=== PATIENT | female | born 1965 | race Caucasian/White ===

== ENCOUNTER → 2019-08-01 | Outpatient (CLI) | payer OTHER ==
[~2019-08-01] MED LIST: REGADENOSON 0.4 MG/5 ML SYRINGE IV ONE
--- NOTE | 2019-08-01 11:38 | NM ---
EXAMINATION TYPE: NM stress lexiscan cardiolite DATE OF EXAM: 08/01/2019 COMPARISON: NONE HISTORY: Abnormal EKG TECHNIQUE: After the intravenous administration of 10.3 mCi Tc 99m Sestamibi - Cardiolite resting SP ECT images acquired 55 minutes post injection. The patient received 0.4mg Lexiscan, 26 mCi Tc 99m Sestamibi - Stress images obtained 40 minutes post injection FINDINGS: Review of stress and rest SPECT images demonstrates mild decreased uptake along the anterior septal l eft ventricle more on rest images than on rest images. Gated analysis shows normal wall motion with an estimated left ventricular ejection fraction of 64 %. IMPRESSION: No scintigraphic evidence for reversible ischemia. Findings above could possibly be due to breast att enuation, correlate.
--- NOTE | 2019-08-01 12:32 | EST ---
EXERCISE STRESS AGE: 54 SEX: F HT: 60" WT: 172 lbs. PROTOCOL: Lexiscan Cardiolite STAGE: DURATION OF EXERCISE: HEART RATE REST: 65 BLOOD PRESSURE REST: 125/78 MAXIMUM HEART RATE ACHIEVED: 88 MAXIMUM BLOOD PRESSURE: 144/60 85% MPHR: 141 100% MPHR: 166 METS: INDICATIONS: Abnormal EKG. CLINICAL INFORMATION: Baseline EKG shows sinus rhythm, normal axis, normal intervals. Patient was given intravenous Lexiscan as per protocol. Did not have chest pain or diagnostic ST-segment depression. CONCLUSION: 1. Negative stress test by EKG criteria. 2. Cardiolite portion of the stress test will be reported separately. MMODL / IJN: [id number] /
== END | disposition home or self-care (01) ==
LOC: RADNMMAIN 08:00
PROVIDERS: ATTEND Family Medicine
DX: R94.31 Abnormal electrocardiogram [ECG] [EKG] (principal)
CPT/HCPCS: 93017; 78452; A9500; J2785

== ENCOUNTER → 2019-10-16 | Outpatient (CLI) | payer OTHER ==
[2019-10-16 13:47] VITALS: BP 126/88; PULSE 69; RESP 16; TEMP 98.3
--- NOTE | 2019-10-16 14:46 | P.HPOB ---
History of Present Illness H&P Date: 10/16/19 Chief Complaint: The patient is here for her routine gynecologic exam. This is a 54-year-old 012 with an LMP of 2009. The patient is here to establish with this office. It has been about 3 or 4 years since her last pelvic exam. She states she has noticed a pimple near the mons pubis which she has squeezed in the past but it does recur. She is otherwise without complaints. She denies any postmenopausal bleeding. Review of Systems The patient has lost 8 pounds over the last year. She has tried to be more active with exercise. She denies respiratory, cardiac, or G.I. problems. 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 History of Any Multi-Drug Resistant Organisms: None Reported Past Surgical History: Tonsillectomy Additional Past Surgical History / Comment(s): Benign thyroid cyst removed. Past Psychological History: No Psychological Hx Reported Smoking Status: Current every day smoker (12 cigarettes per day) Past Alcohol Use History: Daily (1 per Day) Past Drug Use History: None Reported Additional History: She has been since 1980 and is retired. She previously worked in the [employer] and [employer] industry. - Past Family History Father Family Medical History: Diabetes Mellitus, Hyperlipidemia, Myocardial Infarction ([place]) Mother Family Medical History: CVA/TIA Additional Family Medical History / Comment(s): She has no family history of cancer of the breast, uterus, ovaries, or colon. Medications and Allergies Home Medications Medication Instructions Recorded Confirmed Type Indapamide 2.5 PO DAILY 10/16/19 History Metoprolol Succinate (ER) [Toprol 100 mg PO DAILY 10/16/19 10/16/19 History Xl] amLODIPine BESYLATE 5 PO DAILY 10/16/19 History Allergies Allergy/AdvReac Type Severity Reaction Status Date / Time REMA Inhibitors Allergy Swelling Unverified 08/01/19 08:20 Exam Vital Signs Temp Pulse Resp BP 10/16/19 13:19 98.3 F 69 16 126/88 Intake and Output 10/15/19 10/16/19 10/16/19 22:59 06:59 14:59 Other: Weight 78.018 kg Height 5 feet 2 inches, weight 172 pounds, BMI 31.5. This is a well-developed well-nourished white female who is alert and oriented times 3 in no acute distress. HEENT: Within normal limits. NECK: Supple without mass or thyromegaly. CHEST AND LUNGS: Clear to auscultation. HEART: Regular rate and rhythm. BREASTS: Are without mass or discharge. AXILLARY EXAM: Negative for adenopathy. BACK: Negative for CVA tenderness. ABDOMEN: Soft, nontender, without palpable masses. The patient describes an area on the low abdomen superior to the mons pubis and just to the right of midline where she occasionally has seen a pimple-like lesion which she has squeezed in the past. Currently there is no lesion other than a slightly scarred area in and abdominal stretch pepper. This appears very benign. PELVIC EXAM: Normal external genitalia with mild atrophy. Cervix and vagina appear normal mild atrophy. There is no unusual discharge. There is no evidence of prolapse. The uterus is midposition, nongravid size and nontender. There are no palpable adnexal masses or tenderness. RECTAL EXAM: rectovaginal exam is negative for mass or tenderness and is negative for occult blood. EXTREMITIES: Nontender. IMPRESSION: 1. 54-year-old menopausal female with normal gynecologic exam. 2. Smoker. PLAN: 1. Pap smear was performed. 2. Self breast awareness was discussed with the patient. 3. Screening mammogram is recommended and the patient has an appointment for this. The order slip was given to the patient by Dr. Fam Olivo. 4. Osteoporosis prevention was discussed. I have stressed the importance of adequate calcium, vitamin D and regular exercise. Recommended amounts of calcium and vitamin D were also discussed. 5. We have discussed colorectal screening. She has never had a colonoscopy done in the past. She had a cologuard test done within the last [address] Fam Olivo. I have recommended that she have this done at least every 3 years if she chooses not to have regular colonoscopies. 6. She was advised to return in one year for her annual well woman exam.
--- NOTE | 2019-10-30 10:13 | P.PN ---
Progress Note - Text Progress Note Date: 10/30/19 OUTPATIENT FOLLOW-UP NOTE TEST(S)/RESULTS: Pap smear from 10/16/2019 was negative. METHOD OF NOTIFICATION: The patient was notified by phone. PATIENT COMMENTS: She is happy to hear this result. DIAGNOSIS: Negative Pap smear. DISCUSSION: She has her mammogram scheduled in December. PLAN: She was advised to return in one year for her annual well woman exam.
== END | disposition home or self-care (01) ==
LOC: WWCWWP 13:09
PROVIDERS: ATTEND Obstetrics & Gynecology
DX: Z53.9 Procedure and treatment not carried out, unspecified reason (principal)

== ENCOUNTER → 2019-12-27 | Outpatient (CLI) | payer OTHER ==
--- NOTE | 2020-01-07 08:51 | MM ---
Reason for exam: screening (asymptomatic). Last mammogram was performed 3 years and 1 month ago. History: Patient is postmenopausal. Physical Findings: A clinical breast exam by your physician is recommended on an annual basis and results should be correlated with mammographic findings. MG Screening Mammo w CAD Bilateral CC and MLO view(s) were taken. Prior study comparison: December 02, 2016, mammogram, performed at [facility]. June 12, 2013, mammogram, performed at [facility]. There are scattered fibroglandular densities. Focal asymmetry right middle breast. No significant changes when compared with prior studies. ASSESSMENT: Benign, BI-RAD 2 RECOMMENDATION: Routine screening mammogram of both breasts in 1 year.
== END | disposition home or self-care (01) ==
LOC: RADMAMWWP 11:34
PROVIDERS: ATTEND Family Medicine
DX: Z12.31 Encounter for screening mammogram for malignant neoplasm of breast (principal)
CPT/HCPCS: 77067

== ENCOUNTER → 2021-01-27 | Outpatient (CLI) | payer OTHER ==
[2021-01-27 10:54] VITALS: BP 145/89; PULSE 71; RESP 18; TEMP 98.2
--- NOTE | 2021-01-27 11:29 | P.HPOB ---
History of Present Illness H&P Date: 01/27/21 Chief Complaint: The patient is here for her routine gynecologic exam and ma mmogram. This is a 55-year-old with an LMP of 2009. The patient is without gynecologic complaints and denies any postmenopausal bleeding. Review of Systems The patient has lost 4 pounds over the last year. She has been trying to lose weight. One reason she does not want to quit smoking as she fears that she will gain weight quickly if she does. She denies respiratory, cardiac, or G.I. problems. 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 History of Any Multi-Drug Resistant Organisms: None Reported Past Surgical History: Tonsillectomy Additional Past Surgical History / Comment(s): Benign thyroid cyst removed. Past Psychological History: No Psychological Hx Reported Smoking Status: Current every day smoker (Three quarters of 1 pack per day.) Past Alcohol Use History: Daily (1 cocktail daily.) Past Drug Use History: None Reported Additional History: She has been since 1980 and is retired. 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 - Past Family History Father Family Medical History: Diabetes Mellitus, Hyperlipidemia, Myocardial Infarction ([place]) Mother Family Medical History: CVA/TIA Additional Family Medical History / Comment(s): She has no family history of cancer of the breast, uterus, ovaries, or colon. Medications and Allergies Home Medications Medication Instructions Recorded Confirmed Type Indapamide 2.5 PO DAILY 10/16/19 History Metoprolol Succinate (ER) [Toprol 100 mg PO DAILY 10/16/19 10/16/19 History Xl] amLODIPine BESYLATE 5 PO DAILY 10/16/19 History Allergies Allergy/AdvReac Type Severity Reaction Status Date / Time REMA Inhibitors Allergy Swelling Unverified 08/01/19 08:20 Exam Vital Signs Temp Pulse Resp BP Pulse Ox 01/27/21 10:48 98.2 F 71 18 145/89 99 Intake and Output 01/26/21 01/27/21 01/27/21 22:59 06:59 14:59 Other: Weight 76.204 kg Height 5 feet 2 inches, weight 168 pounds, BMI 30.7. This is a well-developed well-nourished white female who is alert and oriented times 3 in no acute distress. HEENT: Within normal limits. NECK: Supple without mass or thyromegaly. CHEST AND LUNGS: Clear to auscultation. HEART: Regular rate and rhythm. BREASTS: Are without mass or discharge. AXILLARY EXAM: Negative for adenopathy. BACK: Negative for CVA tenderness. ABDOMEN: Soft, nontender, without palpable masses. PELVIC EXAM: Normal external genitalia with mild atrophy. Cervix and vagina appear normal with mild atrophy. There is no unusual discharge. There is no evidence of prolapse. The uterus is midposition, nongravid size and nontender. There are no palpable adnexal masses or tenderness. RECTAL EXAM: Rectovaginal exam is negative for mass or tenderness and is neg ative for occult blood. EXTREMITIES: Nontender. IMPRESSION: 1. 55-year-old menopausal female with normal gynecologic exam. 2. Mildly elevated blood pressure with history of chronic hypertension. PLAN: 1. Pap smear was deferred since she had a normal one on 10/16/2019. 2. Self breast awareness was discussed with the patient. We have also discussed symptoms associated with inflammatory breast cancer. 3. Screening mammogram will be done today. 4. Osteoporosis prevention was discussed. I have stressed the importance of adequate calcium, vitamin D and regular exercise. Recommended amounts of calcium and vitamin D were also discussed. 5. I recommended that she try to quit smoking or at least cut back as much as possible. Have discussed many reasons why this is important. We have discussed different ways that she can try to quit. She understands she can also discuss this with her primary care physician. 6. She has completed her Covid vaccination series and has received a booster. 7. [place]-rectal screening has been done with Kristen through her PCP. 8. She was advised to return in one year for her annual well woman exam.
--- NOTE | 2021-01-28 12:38 | MM ---
Reason for exam: screening (asymptomatic). Last mammogram was performed 1 year and 1 month ago. History: Patient is postmenopausal. Physical Findings: A clinical breast exam by your physician is recommended on an annual basis and results should be correlated with mammographic findings. MG Screening Mammo w CAD Bilateral CC and MLO view(s) were taken. Prior study comparison: December 27, 2019, bilateral MG screening mammo w CAD. December 02, 2016, mammogram, performed at [facility]. There are scattered fibroglandular densities. Benign appearing calcifications in the right breast. No significant changes when compared with prior studies. ASSESSMENT: Benign, BI-RAD 2 RECOMMENDATION: Routine screening mammogram of both breasts in 1 year.
== END | disposition home or self-care (01) ==
LOC: WWCWWP 10:34
PROVIDERS: ATTEND Obstetrics & Gynecology
DX: Z12.31 Encounter for screening mammogram for malignant neoplasm of breast (principal)
CPT/HCPCS: 77067

== ENCOUNTER → 2021-07-21 | Outpatient (CLI) | payer OTHER ==
--- NOTE | 2021-07-21 23:22 | CTL ---
EXAMINATION TYPE: CT Low Dose Lung DATE OF EXAM ORDERED: 07/21/2021 HISTORY: Nicotine dependence. Lung cancer screening CT DLP: 122.[address] CTDI: 3.30 mGy Automated exposure control for dose reduction was used. SCREENING VISIT: Baseline COMPARISON: None available TECHNIQUE: Low dose computed tomography scan was performed through the chest at 1 mm thick sections a nd reconstructed images in multiple planes at 1 mm and [address] DIAGNOSTIC QUALITY: Satisfactory FINDINGS: LUNG NODULES: Left lower lobe solid [address] image 170. Right lower lobe medial 5 mm benign calcified granuloma. LUNGS: COPD: Severity: Mild paraseptal emphysema. Fibrosis: Severity: None Lymph nodes: No pathologically enlarged lymph nodes. Other findings: None RIGHT PLEURAL SPACE: Effusion: None Calcification: None Thickening: None Pneumothorax: None LEFT PLEURAL SPACE: Effusion: None Calcification: None Thickening: None Pneumothorax: None HEART: Heart Size: Normal Coronary Calcification: Mild Pericardial Effusion: None OTHER FINDINGS: Upper abdomen: None Bony thorax: No aggressive bone lesion. Supraclavicular region: Suspected left thyroid lobe posterior hypodensity, please correlate with thyr oid ultrasound results. Other: Dilated ascending aorta measuring up to 3.6 cm. Scattered arterial calcifications. IMPRESSION: 3 mm pulmonary nodule, likely benign. No suspicious lung lesion. Paraseptal emphysematous changes. Other findings as described above. CT LUNG RAD AND CT CHEST RECOMMENDATION: Lung-Rad 2 Benign Appearance or Behavior: Continue annual sc reening with LDCT in 12 months. S Modifier (other clinically significant findings): As above.
== END | disposition home or self-care (01) ==
LOC: RADCTMAIN 14:42
PROVIDERS: ATTEND Family Medicine
DX: Z12.2 Encounter for screening for malignant neoplasm of respiratory organs (principal); Z87.891 Personal history of nicotine dependence
CPT/HCPCS: 71271

== ENCOUNTER → 2021-07-31 | Outpatient (CLI) | payer OTHER ==
--- NOTE | 2021-08-02 11:09 | US ---
EXAMINATION TYPE: US thyroid st tissue head/neck DATE OF EXAM: 07/31/2021 COMPARISON: CT CLINICAL HISTORY: E04.1 THYROID NODULE. Nodule seen on CT low dose. GLAND SIZE: Right Lobe: 4.7 x 1.2 x 1.4 cm Overall Parenchyma: homogenous Left Lobe: 4.6 x 1.4 x 1.4 cm Overall Parenchyma: homogeneous Isthmus Thickness: 0.2 cm NODULES RIGHT: # of nodules measured on right: 0 LEFT: # of nodules measured on left: 1 1. 1.8 X 1.3 x 1.4 cm, lower mid, solid or almost completely solid, isoechoic nodule, which is wide r than tall, with smooth margins, echogenic foci. Prior size: no pror ISTHMUS: # of nodules measured in the isthmus: 0 Bilateral neck scanned, no evidence of lymphadenopathy. IMPRESSION: Mildly suspicious, follow-up recommended in one year 2017 ACR TI-RADS LEVEL: TR 3 *Highest TI-RADS level nodule reported
== END | disposition home or self-care (01) ==
LOC: RADUSWWP 16:05
PROVIDERS: ATTEND Family Medicine
DX: E04.1 Nontoxic single thyroid nodule (principal)
CPT/HCPCS: 76536

== ENCOUNTER 2021-08-25 12:52 | Day surgery (SDC) | payer OTHER ==
[2021-08-25 13:17] VITALS: RESP 18; TEMP 98.3
[2021-08-25] MEDS ORDERED: ALPRAZolam 0.5 MG TAB PO STA (13:17)
[2021-08-25 14:29] VITALS: BP 117/80; PULSE 74
--- NOTE | 2021-08-25 15:00 | US ---
EXAMINATION TYPE: US FNA first lesion DATE OF EXAM: 08/25/2021 COMPARISON: NONE HISTORY: Thyroid nodule. Maximal barrier technique was utilized. After informed consent, skin overlying the left lobe thyroid nodule was localized with ultrasound and the overlying skin prepped and draped. Ultrasound was utili zed using sterile technique. Lidocaine was used for local anesthesia. Five passes with a 25-gauge ne edle were made into the nodule and aspirated specimen was submitted to cytology. Following the proce dure hemostasis achieved. No immediate complication. The patient discharged in stable condition. IMPRESSION: STATUS POST ULTRASOUND GUIDED FINE NEEDLE ASPIRATION OF THYROID NODULE, PATHOLOGY IS PEND ING. THIS PROCEDURE WAS PERFORMED BY THE UNDERSIGNED.
== END 2021-08-25 14:30 | disposition home or self-care (01) ==
LOC: RADPROMAIN 12:52
PROVIDERS: ATTEND Family Medicine
DX: E04.1 Nontoxic single thyroid nodule (principal)
CPT/HCPCS: 10005; 88173; 88305

== ENCOUNTER → 2022-06-30 | Outpatient (CLI) | payer OTHER ==
[2022-06-30 10:08] VITALS: BP 151/96; PULSE 74; RESP 12; TEMP 97.9
--- NOTE | 2022-06-30 12:57 | P.PN ---
Progress Note - Text Progress Note Date: 06/30/22 Chief Complaint: Light vaginal bleeding which started on 06/22/2022. HPI: This is a 57-year-old 012 with an LMP of 2009. The patient states she developed light vaginal spotting on 06/22/2022 and she noticed this through 06/28/2022. She states it was like the very end of a menstrual period where the blood was older. She denies menstrual type cramping, but after the bleeding stopped, she noticed a small amount of left lower quadrant and left pelvic pressure which she rated at a 4 out of 10. She was not sexually active around the time when she noticed the blood. She states she did notice a slight odor just prior to the light bleeding starting. She denies any vaginal discharge a round that time. She denies taking any hormone replacement therapy or any [id number] supplements or medications for menopausal symptoms. ROS: She denies respiratory, cardiac, or GI problems. : As above. She also denies any urinary tract infection symptoms. PE: Blood pressure: 143/96, Height: 5 feet 0 inches, Weight: 178 pounds, BMI 35, Temperature: 97.9, Pulse: 74. This is a well developed, well nourished, female who is alert and orientedx3, in no acute distress. Abdomen: Soft, nontender, without palpable masses. Pelvic exam: Normal external genitalia with mild atrophy. Cervix and vagina appear normal with mild atrophy there is no unusual discharge and no evidence of blood in the vagina. There is no evidence of prolapse. The uterus is mid positioned, nongravid size and nontender. There are no palpable adnexal masses or tenderness. Additional studies: Pap smear cotest done on 04/06/2022 was negative. Impression: 1. 57-year-old menopausal female with recent light vaginal postmenopausal bleeding which has stopped. There are no significant physical findings at this time. 2. Recent left lower quadrant abdominal and pelvic pressure with no significant physical findings on exam. Differential diagnosis will include constipation or other GI cause as well as adnexal mass such as an ovarian cyst. Plan: 1. Pelvic ultrasound will be done today. We will be checking the endometrial thickness as well as checking for abnormal adnexal masses. 2. We have had a long discussion regarding the postmenopausal bleeding. She understands that this is not normal and we have discussed possible causes for this including the possibility of endometrial cancer. We have discussed how the ovaries ultrasound can be used to determine endometrial thickness. If the endometrial thickness is 4 millimeters or less we can consider observation. She understands that if she has recurrent bleeding or if the endometrium is thickened, then further evaluation will be necessary. Time spent with the patient: 25 minutes
--- NOTE | 2022-06-30 13:59 | US ---
EXAMINATION TYPE: US pelvic complete DATE OF EXAM: 06/30/2022 COMPARISON: NONE CLINICAL INDICATION: Female, 57 years old with history of R10.2 PELVIC PAIN, N95.0 PMB; pelvic pressu re, post menopausal spotting x 1 week. TECHNIQUE: Transvaginal (TV) and Transabdominal (TA) . Transabdominal sonographic images of the pel vis were acquired. Transvaginal sonographic images were medically necessary to better assess the fol lowing anatomy: Endometrium Date of LMP: post-menopausal EXAM MEASUREMENTS: Uterus: 6.6 x 2.35 x 3.8 cm Endometrial Stripe: 0.56 cm Right Ovary: 1.0 x 2.5 x 2.8 cm Left Ovary: 1.3 x 0.7 x 0.8 cm 1. Uterus: Anteverted partially Obscured by overlying bowel gas on TV portion of exam 2. Endometrium: upper limits. 3. Right Ovary: wnl 4. Left Ovary: wnl 5. Bilateral Adnexa: Obscured by overlying bowel gas 6. Posterior cul-de-sac: wnl IMPRESSION: Endometrium at the upper limits of size for patient's age. Further evaluation recommended given patient's symptoms.
--- NOTE | 2022-06-30 14:22 | P.PN ---
Progress Note - Text Progress Note Date: 06/30/22 OUTPATIENT FOLLOW-UP NOTE TEST(S)/RESULTS: Pelvic ultrasound done on 06/30/2022 showed an endometrial thickness of 6 mm. The ovaries and adnexa appeared normal. METHOD OF NOTIFICATION: The patient was notified by phone on 06/30/2022. PATIENT COMMENTS: DIAGNOSIS: Small postmenopausal bleeding with endometrial thickness of 6 mm. DISCUSSION: The endometrial thickness is not highly suggestive of endometrial neoplasia, but at this thickness with the postmenopausal bleeding that she has experienced, I am recommending endometrial sampling. She will be scheduled for an endometrial biopsy in the near future. She will also try to move her bowels on a regular basis and suggestions on this was given to the patient. We have discussed how the pelvic pressure may be related to the GI tract. I do not believe the pressure is gynecologic in nature. PLAN: As above.
== END ==
LOC: WWCWWP 09:51
PROVIDERS: ATTEND Obstetrics & Gynecology
DX: N95.0 Postmenopausal bleeding (principal); R10.2 Pelvic and perineal pain; Z88.6 Allergy status to analgesic agent
CPT/HCPCS: 76830; 76856

== ENCOUNTER → 2022-07-07 | Day surgery (SDC) | payer OTHER ==
[2022-07-07 10:44] VITALS: TEMP 98.2
[2022-07-07 11:42] VITALS: BP 158/98; PULSE 75; RESP 18
--- NOTE | 2022-07-07 11:45 | P.PCN ---
Date of Procedure: 07/07/22 Preoperative Diagnosis: small postmenopausal bleeding. Postoperative Diagnosis: Small postmenopausal bleeding. Procedure(s) Performed: Endometrial biopsy Anesthesia: none Surgeon: Alexei Joiner Estimated Blood Loss (ml): 1 Pathology: other (endometrial tissue) Condition: stable Disposition: same day Indications for Procedure: This was a 57-year-old menopausal female with an LMP of 2009 who developed light vaginal bleeding from 06/22/2022 to 06/28/2022. Ultrasound showed an end ometrial thickness of 6 mm. Operative Findings: The uterus is nongravid size and nontender. There are no palpable adnexal masses or tenderness. The uterus measured 6.5 cm. Scant tissue was obtained. Description of Procedure: The procedure was discussed in detail with the patient. Possible risks and complications were discussed including the possibility of bleeding, infection, and uterine perforation. All questions were answered. Preprocedure vitals: Blood pressure 135/91, pulse 77, temperature 98.2, and pulse oximeter 100%. The patient was placed in the lithotomy position. Bimanual examination revealed a midposition, nongravid size uterus which was nontender. There were no palpable adnexal masses or tenderness. A speculum was inserted into the vagina. Betadine solution was used to prep the cervix and vagina. An Allis clamp was placed on the anterior lip of the cervix. The 3 mm endometrial biopsy instrument was inserted with some resistance within the cervix. The Allis clamp was repositioned to the posterior cervix and different angles were used. The endometrial biopsy instrument into 6.5 cm and could not be further advanced with mild force. Negative pressure was applied and a [id number] rotating motion was used. A scant amount of tissue was obtained. One more attempt was used and again, scant amount of tissue was obtained. The tissue obtained was sent for pathological examination. The instruments were removed. The patient tolerated the procedure well. There were no complications. Postprocedure vitals: Blood pressure 148/98, pulse 69, pulse oximeter 97%. The patient was discharged home in stable condition. The patient was instructed to call she had unusual pain, heavy bleeding, fever, or problems.
--- NOTE | 2022-07-13 12:31 | P.PN ---
Progress Note - Text Progress Note Date: 07/13/22 OUTPATIENT FOLLOW-UP NOTE TEST(S)/RESULTS: Endometrial biopsy pathology from 07/07/2022 showed fragments of benign endocervical mucosa with insufficient tissue for evaluation of the endometrium. METHOD OF NOTIFICATION: The patient was notified by phone on 07/13/2022. PATIENT COMMENTS: The patient states she had a small amount of bleeding immediately after the endometrial biopsy procedure which seemed to stop. She developed some red bleeding 4 days after the procedure and this has since turned to old blood. She did have a small amount of cramping associated with bleeding. DIAGNOSIS: Postmenopausal bleeding with insufficient tissue from the endometrial biopsy sample for evaluation of the endometrium. DISCUSSION: We have discussed how the endometrial biopsy did not get adequate tissue from the endometrium for adequate evaluation. This may have been because the cervix is somewhat long and narrow. The endometrial biopsy instrument advanced only to 6.5 cm which is less than expected for a multiparous menopausal female. Since she did have recurrence of bleeding several days after the endometrial biopsy procedure, I feel that further evaluation of the endometrium with hysteroscopy and D&C is warranted. She will be referred to Dr. Boyd for hysteroscopy and D&C. She understands this and would like to proceed with this referral. PLAN: As above.
== END ==
LOC: WWCWWP 10:15
PROVIDERS: ATTEND Obstetrics & Gynecology
DX: N95.0 Postmenopausal bleeding (principal); Z78.0 Asymptomatic menopausal state
CPT/HCPCS: 88305

== ENCOUNTER → 2022-07-26 | Outpatient (CLI) | payer OTHER ==
--- NOTE | 2022-07-26 10:48 | CTL ---
EXAMINATION TYPE: CT Low Dose Lung DATE OF EXAM ORDERED: 07/26/2022 HISTORY: Current smoker. Lung cancer screening CT DLP: 87.[address] CTDI: 2.3 mGy Automated exposure control for dose reduction was used. SCREENING VISIT: Follow-up COMPARISON: 07/21/2021 TECHNIQUE: Low dose computed tomography scan was performed through the chest at 1 mm thick sections a nd reconstructed images in the coronal plane at [address] DIAGNOSTIC QUALITY: Satisfactory FINDINGS: LUNG NODULES: Present, detailed below: Left lung: There is a 0.2 cm stable punctate nodule posterior medial left lung, image 191. Right lung: Stable posterior medial right lower lobe calcification measuring 0.5 cm. Image 253. LUNGS: COPD: Severity: Mild Fibrosis: Severity: None Lymph nodes: None Other findings: None RIGHT PLEURAL SPACE: Effusion: None Calcification: None Thickening: None Pneumothorax: None LEFT PLEURAL SPACE: Effusion: None Calcification: Minimal Thickening: None Pneumothorax: None HEART: Heart Size: Normal Coronary calcification: Minimal Pericardial effusion: None OTHER FINDINGS: Upper abdomen: Normal Bony thorax: Normal Supraclavicular region: Normal Other: Ascending thoracic aorta at the level the main pulmonary artery measures 3.8 cm. The main pul monary artery at the bifurcation measures 2.0 cm. IMPRESSION: 1. No interval change in benign-appearing lung nodules. FOLLOW UP CT CHEST RECOMMENDATION: Follow-up low-dose CT chest [address] LUNG RAD: Lung-Rad 2 Benign Appearance or Behavior
== END | disposition home or self-care (01) ==
LOC: RADCTMAIN 08:11
PROVIDERS: ATTEND Family Medicine
DX: Z12.2 Encounter for screening for malignant neoplasm of respiratory organs (principal); F17.210 Nicotine dependence, cigarettes, uncomplicated; R91.8 Other nonspecific abnormal finding of lung field
CPT/HCPCS: 71271

== ENCOUNTER → 2022-07-27 | Outpatient (CLI) | payer OTHER ==
[2022-07-27 15:55] LABS: Basophils # (A) 0.08 X 10*3/uL (0.00-0.10); Basophils % (A) 0.7 %; Eosinophils # (A) 0.14 X 10*3/uL (0.04-0.35); Eosinophils % (A) 1.2 %; HGB 16.2 d/dL (12.0-15.0); Lymphocytes # (A) 1.92 X 10*3/uL (0.90-5.00); MCHC 33.8 d/dL (32.0-37.0); MCV 94.7 FL (80.0-97.0); Mean Platelet Volume 11.8 FL (9.5-12.2); Monocytes # (A) 0.65 X 10*3/uL (0.20-1.00); Monocytes % (A) 5.8 %; NRBC Per 100 WBC 0 X 10*3/uL (0.00-0.01); Neutrophils # (A) 8.43 X 10*3/uL (1.80-7.70); Neutrophils % (A) 74.9 %; Platelet Count 226 X 10*3/uL (140-440); RBC 5.07 X 10*6/uL (4.10-5.20); RDW 12.4 % (11.5-14.5); WBC 11.27 X 10*3/uL (4.50-10.00)
== END | disposition home or self-care (01) ==
LOC: LABPAT 10:41
PROVIDERS: ATTEND Obstetrics & Gynecology
DX: Z01.818 Encounter for other preprocedural examination (principal); I10 Essential (primary) hypertension; N95.0 Postmenopausal bleeding; R93.89 Abnormal findings on diagnostic imaging of other specified body structures; R94.31 Abnormal electrocardiogram [ECG] [EKG]
CPT/HCPCS: 36415; 85025; 93005

== ENCOUNTER 2022-08-09 07:51 | Day surgery (SDC) | payer OTHER ==
[~2022-08-09 07:51] MED LIST changes: +DEXAMETHASONE SOD PHOSPHATE 4 MG/ML 1 ML VIAL IV ONE; +HYDROmorphone 0.5 MG/0.5 ML SYRINGE IVP PRN; +LACTATED RINGERS 1,000 ML IV SCH; +MIDAZOLAM 2 MG/2 ML VIAL IV PRN; +ONDANSETRON 4 MG/2 ML VIAL IVP ONE; +Pre Op ABX Message 1 EACH MISC MISCELLANE ONE; -REGADENOSON 0.4 MG/5 ML SYRINGE IV ONE; +SCOPOLAMINE 1 MG/72 HR PATCH TRANSDERM ONE
[2022-08-09 08:23] VITALS: RESP 16
[2022-08-09] MEDS ORDERED: MIDAZOLAM 2 MG/2 ML VIAL IV ONE (08:38)
[2022-08-09] MEDS ORDERED: PROPOFOL 10 MG/ML 20 ML VIAL IV ONE (09:26)
[2022-08-09] MEDS ORDERED: KETOROLAC 15 MG/ML 1 ML VIAL ONE (09:26)
[2022-08-09] MEDS ORDERED: MIDAZOLAM 2 MG/2 ML VIAL ONE (09:26)
[2022-08-09] MEDS ORDERED: fentaNYL (PF) 50 MCG/ML 2 ML AMP ONE (09:26)
[2022-08-09] MEDS ORDERED: Acetaminophen-Codeine 300-30mg TAB PO PRN ×2 (09:56)
[2022-08-09] MEDS ORDERED: SIMETHICONE 80 MG CHEWABLE PO PRN (09:56)
[2022-08-09] MEDS ORDERED: diphenhydrAMINE 50 MG/ML 1 ML VIAL IVP PRN (09:56)
[2022-08-09] MEDS ORDERED: KETOROLAC 15 MG/ML 1 ML VIAL IVP PRN (09:56)
[2022-08-09] MEDS ORDERED: METOCLOPRAMIDE 5 MG/ML 2 ML VIAL IVP PRN (09:56)
[2022-08-09] MEDS ORDERED: ONDANSETRON 4 MG/2 ML VIAL IVP PRN (09:56)
[2022-08-09] MEDS ORDERED: LACTATED RINGERS 1,000 ML IV SCH (10:00)
--- NOTE | 2022-08-09 10:04 | P.OP ---
Date of Procedure: 08/09/22 Preoperative Diagnosis: #1. Postmenopausal bleeding Postoperative Diagnosis: Same Procedure(s) Performed: #1. Diagnostic hysteroscopy #2. Endometrial curettage Anesthesia: other (Gen. by LMA) Surgeon: Aquilino Boyd Estimated Blood Loss (ml): 5 IV fluids (ml): 500 Urine output (ml): 25 Pathology: other (Endometrial curettings) Condition: stable Disposition: PACU Operative Findings: Preoperative pelvic examination demonstrated a roughly 4 week midplane mobile normal shaped uterus with normal adnexa bilaterally. Intraoperatively, the uterus sounded to 7 cm. There was the possibility of a perforation with the first dilator as it appeared to have entered the balloon 7 cm. Using the hysteroscope, the tubal ostia were seen though the tubal ostia on the patient's left was significantly larger than on the right and may have represented a small perforation. In either case, there was no significant pathology noted. Minimal tissue was noted on curetting in the typical gritty texture was noted throughout. The patient is a poor candidate for vaginal hysterectomy should it become necessary. Description of Procedure: The patient was prepped and draped in usual fashion after general anesthesia was administered by the anesthesiologist. A weighted speculum was placed and the bladder drained of approximately 25 mL of clear srinivas urine. The anterior lip of the cervix was grasped with a single-tooth tenaculum and the uterus sounded to 7 cm as noted above. Serial dilation was carried out with the first dilator having penetrated what appeared to be somewhat deeper than 7 cm screening the p ossibility of a uterine perforation. Nevertheless, continued dilation was carried out to admit the diagnostic hysteroscope. The in vitro cavity was distended with sorbitol and there was no apparent pathology. The left tubal ostial region did have a larger opening than the right tubal ostia which may have represented the perforation. Nevertheless, there was no ongoing bleeding or any concern. After seeing no pathology, the scope was set aside and a small sharp curette introduced into the endometrial cavity. Thorough and circumferential curettage was carried out onto a Telfa placed in the vagina with the typical gritty texture encountered throughout and minimal tissue returned. A polyp forceps was then introduced and no further tissue produced. All instrumentation was removed. Small point of bleeding from one of the tenaculum sites was made hemostatic with pressure. Estimated blood loss for the case was less than 5 mL. There were no complications aside from the small possibility of perforation with the smallest dilator. All sponge, is straight, needle counts were correct. The patient tolerated the procedure well and proceeded to the recovery room in stable condition.
[2022-08-09 10:09] VITALS: TEMP 97.3
[2022-08-09 10:46] VITALS: BP 115/78; PULSE 81
[2022-08-10] MEDS ORDERED: ACETAMINOPHEN TAB 325 MG TAB PO PRN (09:58)
== END 2022-08-09 11:00 | disposition home or self-care (01) ==
LOC: OR 07:51
PROVIDERS: ATTEND Obstetrics & Gynecology
DX: N95.0 Postmenopausal bleeding (principal); R93.89 Abnormal findings on diagnostic imaging of other specified body structures
CPT/HCPCS: 58558; 88305; J2250; J1100; J2405; J3010; J1885; J2704

== ENCOUNTER → 2023-07-20 | Outpatient (CLI) | payer OTHER ==
[2023-07-20 12:10] VITALS: BP 153/102; PULSE 71; RESP 18; TEMP 98.4
--- NOTE | 2023-07-20 13:18 | P.HPOB ---
History of Present Illness H&P Date: 07/20/23 Chief Complaint: The patient is here for her routine gynecologic exam and ma mmogram. This is a 58-year-old -0-1-2 with an LMP of 2009. The patient developed postmenopausal bleeding about 1 year ago. Last year she had an ultrasound which showed an endometrial thickness of 6 mm. Endometrial biopsy was unsuccessful and she was referred for hysteroscopy and D&C which were performed by Dr. Boyd on 08/09/2022. At that time there may have been a uterine perforation and no significant abnormality was otherwise seen by hysteroscopy. The pathology showed rare possible inactive endometrial glands. Patient states she continues to have intermittent light sporadic bleeding. She states most days she does not have bleeding. States the bleeding is like the tail end of a period. Occasionally she does have some cramping associated with it. She states it is not associated with any particular activity including sexual activity. She has noticed that the bleeding episodes have become more frequent recently. Review of Systems The patient has gained 3 pounds over the last year. She denies respiratory, cardiac, or G.I. problems. Past Medical History Past Medical History: GERD/Reflux, Hyperlipidemia, Hypertension, Sleep Apnea/CPAP/BIPAP, Thyroid Disorder Additional Past Medical History / Comment(s): CPAP but not using---states sleep apnea is "minor", thyroid nodule. 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 History of Any Multi-Drug Resistant Organisms: None Reported Past Surgical History: Tonsillectomy Additional Past Surgical History / Comment(s): Benign thyroid cyst removed. Hysteroscopy and D&C in 2022. Past Anesthesia/Blood Transfusion Reactions: No Reported Reaction Past Psychological History: No Psychological Hx Reported Smoking Status: Current every day smoker Past Alcohol Use History: Daily (1 small drink with dinner daily.) Additional Past Alcohol Use History / Comment(s): smokes 1/2 PPD for approximately 25 years Past Drug Use History: Marijuana (She has used this to help her sleep at times.) Additional History: She has been since 1980 and is retired. - Past Family History Father Family Medical History: Diabetes Mellitus, Hyperlipidemia, Myocardial Infarction ([place]) Mother Family Medical History: CVA/TIA Additional Family Medical History / Comment(s): She has no family history of cancer of the breast, uterus, ovaries, or colon. Medications and Allergies Home Medications Medication Instructions Recorded Confirmed Type Indapamide 2.5 mg PO DAILY 10/16/19 08/09/22 History Metoprolol Succinate (ER) [Toprol 100 mg PO DAILY 10/16/19 08/09/22 History Xl] amLODIPine BESYLATE 5 mg PO DAILY 10/16/19 08/09/22 History Aspirin [Adult Low Dose Aspirin EC] 81 mg PO DAILY 08/12/21 08/09/22 History Cholecalciferol [Vitamin D3 (25 50 mcg PO DAILY 08/12/21 08/09/22 History Mcg = 1000 Iu)] Lovastatin [Mevacor] 40 mg PO HS 08/12/21 08/09/22 History Omeprazole [PriLOSEC] 10 mg PO AC-BRKFST 07/20/23 07/20/23 History Allergies Allergy/AdvReac Type Severity Reaction Status Date / Time REMA Inhibitors Allergy Swelling Unverified 07/20/23 12:05 Exam Vital Signs Temp Pulse Resp BP Pulse Ox 07/20/23 12:06 98.4 F 71 18 153/102 100 Intake and Output 07/19/23 07/20/23 07/20/23 22:59 06:59 14:59 Other: Weight 81.647 kg Height 5 feet 2 inches, weight 180 pounds, BMI 32.9. This is a well-developed well-nourished female who is alert and oriented times 3 in no acute distress. HEENT: Within normal limits. NECK: Supple without mass or thyromegaly. CHEST AND LUNGS: Clear to auscultation. HEART: Regular rate and rhythm. BREASTS: Are without mass or discharge. AXILLARY EXAM: Negative for adenopathy. BACK: Negative for CVA tenderness. ABDOMEN: Soft, nontender, without palpable masses. PELVIC EXAM: Normal external genitalia with mild atrophy. Cervix and vagina satya ear normal with mild atrophy. There is a small amount of dark menstrual type blood at the cervical os and in the vagina. There is no unusual discharge. There is no evidence of prolapse. The uterus is midposition, nongravid size and nontender. There are no palpable adnexal masses or tenderness. RECTAL EXAM: Rectovaginal exam is negative for mass or tenderness and is negative for occult blood. EXTREMITIES: Nontender. IMPRESSION: 1. 58-year-old female with recurrent intermittent postmenopausal vaginal bleeding status post hysteroscopy and D&C 1 year ago, with normal gynecologic exam. PLAN: 1. Pap smear was deferred since she had a negative Pap smear cotest on 04/06/2022. 2. Self breast awareness was discussed with the patient. We have also discussed symptoms associated with inflammatory breast cancer. 3. Screening mammogram will be done today. 4. The patient will be referred back to Dr. Boyd for reevaluation. I am not sure if he would want to repeat the hysteroscopy and D&C or talk about other options such as hysterectomy. She understands that since there may have been a uterine perforation at the time of the hysteroscopy and D&C last year, repeating this may not be the best option. 5. Osteoporosis prevention was discussed. I have stressed the importance of adequate calcium, vitamin D and regular exercise. Recommended amounts of calcium and vitamin D were also discussed. She will be doing a bone density test today and she believes this will be her first. 6. She was advised to return in one year for her annual well woman exam and as needed.
--- NOTE | 2023-07-20 18:21 | BD ---
EXAMINATION TYPE: Axial Bone Density DATE OF EXAM: 07/20/2023 CLINICAL HISTORY: 58 years old Female. ICD-10 CODE: Z78.0 POST MENAPAUSAL Height: 61.2 in Weight: 180 lbs FRAX RISK QUESTIONS: Secondary Osteoporosis: 3. Menopause before 45: approximately age 42 Current Tobacco Use: yes RISK FACTORS HISTORY OF: History of Wrist Fracture: wrist fx age 4 (pt unsure which one) EXAM MEASUREMENTS: Bone mineral densitometry was performed using the [employer] [facility]. Bone mineral density as measured about the Lumbar spine is: ----- L1-L4(G/cm2): 1.250 T Score Values are as follows: ----- L1: 0.2 ----- L2: 0.0 ----- L3: 1.4 ----- L4: 0.5 ----- L1-L4: 0.6 Z Score Values are as follows: ----- L1: 0.7 ----- L2: 0.5 ----- L3: 1.9 ----- L4: 1.0 ----- L1-L4: 1.1 Bone mineral density baseline Bone mineral density about the R hip (g/cm2): 0.983 Bone mineral density about the L hip (g/cm2): 1.001 T Score values are as follows: -----R Neck: -0.4 -----L Neck: -0.8 -----R Total: -0.2 -----L Total: -0.1 Z Score values are as follows: -----R Neck: 0.4 -----L Neck: 0.1 -----R Total: 0.2 -----L Total: 0.4 Bone mineral density baseline FRAX%s: The graph provided illustrates a 5.9% chance for a major osteoporotic fx and a 0.4% chance fo r the hips probability for fx in 10 years time. IMPRESSION: Normal (Values between +1 and -1 indicate normal bone mass). Consider repeating this study in 5 year s or sooner if there is some new clinical indication. NOTE: T-SCORE=SD OF THE YOUNG ADULT MEAN.
--- NOTE | 2023-07-21 21:01 | MM ---
Reason for Exam: Screening (asymptomatic). Last mammogram was performed 1 year(s) and 4 month(s) ago. Patient History: Menarche at age 12. First Full-Term at age 29. Postmenopausal. Risk Values: Vickie 5 year model risk: 1.5%. NCI Lifetime model risk: 8.5%. Prior Study Comparison: 12/27/2019 Bilateral Screening Mammogram, [facility]. 01/27/2021 Bilateral Screening Mammogram, [facility]. 04/06/2022 Bilateral MG screening mammo w CAD, [facility]. Tissue Density: There are scattered areas of fibroglandular density. Findings: Analyzed By CAD. Chronic nodularity on both sides. There is no suspicious group of microcalcifications or new suspicious mass in either breast. Overall Assessment: Benign, BI-RAD 2 Management: Screening Mammogram of both breasts in 1 year. . Patient should continue monthly self-breast exams. A clinical breast exam by your physician is recommended on an annual basis. This exam should not preclude additional follow-up of suspicious palpable abnormalities. Note on Vickie scores and lifetime risk: 1. A Vickie score greater than 3% is considered moderate risk. If this is the case, consider specialist referral to assess eligibility for a risk reducing agent. 2. If overall lifetime risk for the development of breast cancer is 20% or higher, the patient may qualify for future screening with alternating mammogram and breast MRI. Electronically signed and approved by: Sherry Nava M.D. Radiologist
== END ==
LOC: WWCWWP 11:14
PROVIDERS: ATTEND Obstetrics & Gynecology
DX: Z12.31 Encounter for screening mammogram for malignant neoplasm of breast (principal); N95.0 Postmenopausal bleeding; F17.210 Nicotine dependence, cigarettes, uncomplicated; Z98.890 Other specified postprocedural states; Z88.8 Allergy status to other drugs, medicaments and biological substances; Z80.3 Family history of malignant neoplasm of breast
CPT/HCPCS: 77067; 77080

== ENCOUNTER → 2023-07-28 | Outpatient (CLI) | payer OTHER ==
--- NOTE | 2023-07-28 12:28 | CTL ---
EXAMINATION TYPE: CT Low Dose Lung DATE OF EXAM ORDERED: 07/28/2023 HISTORY: Personal history of nicotine dependence, 32 pack-year history, current smoker. Lung cancer s creening CT DLP: 83.[address] CTDI: 2.4 mGy Automated exposure control for dose reduction was used. SCREENING VISIT: Follow-up COMPARISON: CT Low Dose Lung cancer screening 07/26/2022, 07/21/2021 TECHNIQUE: Low dose computed tomography scan was performed through the chest at 1 mm thick sections a nd reconstructed images in multiple planes at 1 mm and [address] DIAGNOSTIC QUALITY: Satisfactory FINDINGS: Nodules: Stable 3 mm pulmonary nodule within the medial aspect of the left lower lobe (series 4, image 156). S table 3 mm pulmonary nodule within the right mid lung (series 4, image 134). Stable calcified granulo ma within the medial aspect of the right lower lobe. LUNGS: COPD: Severity: Mild paraseptal emphysematous changes. Fibrosis: Severity: None Lymph nodes: None Other findings: None RIGHT PLEURAL SPACE: Effusion: None Calcification: None Thickening: None Pneumothorax: None LEFT PLEURAL SPACE: Effusion: None Calcification: None Thickening: None Pneumothorax: None HEART: Heart Size: Normal Coronary Calcification: Small Pericardial Effusion: None OTHER FINDINGS: Upper abdomen: None Bony thorax: None Supraclavicular region: None Other: None IMPRESSION: Few stable pulmonary nodules measuring up to 3 mm. No new or enlarging pulmonary nodules. CT LUNG RAD AND CT CHEST RECOMMENDATION: Lung-Rad 2 Benign Appearance or Behavior: Continue annual sc reening with LDCT in 12 months. S Modifier (other clinically significant findings): None
== END | disposition home or self-care (01) ==
LOC: RADCTMAIN 11:39
PROVIDERS: ATTEND Family Medicine
DX: Z12.2 Encounter for screening for malignant neoplasm of respiratory organs (principal); F17.210 Nicotine dependence, cigarettes, uncomplicated; R91.8 Other nonspecific abnormal finding of lung field
CPT/HCPCS: 71271

== ENCOUNTER → 2023-09-05 | Outpatient (CLI) | payer OTHER ==
[2023-09-05 15:56] LABS: Blood Urea Nitrogen 15.9 mg/dL (9.0-27.0); Carbon Dioxide 28.4 mmol/L (21.6-31.8); Chloride 101 mmol/L (96-109); Glucose 139 mg/dL (70-110); Potassium 3.4 mmol/L (3.5-5.5); Sodium 142 mmol/L (135-145)
[2023-09-05 17:04] LABS: Basophils # (A) 0.07 X 10*3/uL (0.00-0.10); Basophils % (A) 0.8 %; Eosinophils # (A) 0.12 X 10*3/uL (0.04-0.35); Eosinophils % (A) 1.5 %; HCT 43.7 % (37.2-46.3); HGB 14.8 g/dL (12.0-15.0); Lymphocytes % (A) 19.3 %; MCH 31.7 pg (27.0-32.0); MCHC 33.9 g/dL (32.0-37.0); MCV 93.6 FL (80.0-97.0); Mean Platelet Volume 12.8 FL (9.5-12.2); Monocytes # (A) 0.56 X 10*3/uL (0.20-1.00); Monocytes % (A) 6.8 %; NRBC Per 100 WBC 0 X 10*3/uL (0.00-0.01); Neutrophils # (A) 5.88 X 10*3/uL (1.80-7.70); Neutrophils % (A) 71.1 %; Platelet Count 204 X 10*3/uL (140-440); RBC 4.67 X 10*6/uL (4.10-5.20); RDW 12.6 % (11.5-14.5); WBC 8.27 X 10*3/uL (4.50-10.00)
== END | disposition home or self-care (01) ==
LOC: LABPAT 12:16
PROVIDERS: ATTEND Obstetrics & Gynecology
DX: Z01.818 Encounter for other preprocedural examination (principal); I10 Essential (primary) hypertension; N95.0 Postmenopausal bleeding
CPT/HCPCS: 80051; 82565; 82947; 84520; 85025; 86850; 86900; 86901; 87086; 93005